=== PATIENT | male | born 1970 | race Two or more races ===

== ENCOUNTER 2018-02-27 03:37 | Emergency (ER) | payer OTHER ==
[~2018-02-27] VITALS: Ht 170.2 cm; Wt 74.2 kg
[2018-02-27] MEDS ORDERED: IBUPROFEN 600 MG TABLET ONE (04:48)
[2018-02-27] MEDS ORDERED: ALBUTEROL SULFATE 2.5 MG/3 ML ONE (04:50)
[2018-02-27] MEDS ORDERED: IBUPROFEN 200 MG TABLET PO ONE (05:00)
[2018-02-27] MEDS ORDERED: ALBUTEROL SULFATE 2.5 MG/3 ML NPPB ONE (05:00)
[2018-02-27] MEDS ORDERED: AZITHROMYCIN 250 MG TABLET ONE (05:40)
[2018-02-27 05:51] VITALS: BP 113/72
[2018-02-27] MEDS ORDERED: AZITHROMYCIN 500 MG TABLET PO ONE (06:00)
== END 2018-02-27 05:53 | disposition home or self-care (01) ==
LOC: ED 03:45
DX: J18.1 Lobar pneumonia, unspecified organism (principal)
CPT/HCPCS: 71046; 93005; 94640; 99284; J7512; J7613